=== PATIENT | male | born 1990 | race Caucasian/White ===

== ENCOUNTER 2020-01-12 16:10 | Emergency (ER) | payer BC, OTHER ==
[~2020-01-12] VITALS: Ht 182.9 cm; Wt 76.7 kg
[~2020-01-12 16:10] MED LIST: AMPH30TA2 PO
[2020-01-12] MEDS ORDERED: ONDANSETRON 2MG/ML, 2ML ONE (17:09)
[2020-01-12] MEDS ORDERED: KETOROLAC 30 MG/1 ML ONE (17:11)
[2020-01-12 17:18] VITALS: BP 156/102
--- NOTE | 2020-01-12 17:21 | NUR ---
Pt arrives to ed with new onset of emesis and is unable to control. Pt reports he also has lower right flank pain. Pt reports he has had some etoh before but drinks a beer a day. Pt also reports that he has used cannibis but normally smokes before bed everyday. Pt had one large episode of emesis in front of RN about 600cc of green biley like fluid. Pt connected to monitors. PIV placed and pt medicated per emar. Call light in reach.
[2020-01-12 17:23] LABS: BASOPHILS # (AUTO) 0.02 x10^3/uL (0-0.1); BASOPHILS % (AUTO) 0 % (0-1); EOSINOPHILS % (AUTO) 0 % (1-7); LYMPHOCYTES # (AUTO) 0.96 x10^3/uL (1-3.4); LYMPHOCYTES % (AUTO) 9 % (22-44); MD NO; MEAN CORPUSCULAR HEMOGLOBIN 32.3 pg (27.5-34.5); MEAN CORPUSCULAR HGB CONC 33.5 g/dL (33.2-36.2); MEAN CORPUSCULAR VOLUME 96.4 fL (81-97); MEAN PLATELET VOLUME 7.5 fL (7.4-10.4); MONOCYTES # (AUTO) 0.54 x10^3/uL (0.2-0.8); MONOCYTES % (AUTO) 5 % (2-9); NEUTROPHILS # (AUTO) 9.38 x10^3/uL (1.8-6.8); NEUTROPHILS % (AUTO) 86 % (42-75); PLATELET COUNT 247 x10^3/uL (130-400); RED CELL DISTRIBUTION WIDTH 13.5 % (9.4-14.8)
[2020-01-12] MEDS ORDERED: KETOROLAC 30 MG/1 ML IVPush ONE (17:30)
[2020-01-12] MEDS ORDERED: ONDANSETRON 2MG/ML, 2ML IVPush ONE (17:30)
[2020-01-12] MEDS ORDERED: SODIUM CHLORIDE 0.9% 1,000ML IVBOLUS ONE (17:30)
[2020-01-12] MEDS ORDERED: SODIUM CHLORIDE FLUSH 10ML SYR IVF ONE (17:30)
[2020-01-12 17:31] LABS: ALANINE AMINOTRANSFERASE 43 U/L (12-78); ALBUMIN 5.1 g/dL (3.4-5.0); ANION GAP 11 mmol/L (5-15); CALCIUM 9.1 mg/dL (8.5-10.1); CHLORIDE 102 mmol/L (98-107); CREATININE 1.55 mg/dL (0.7-1.3)
[2020-01-12 17:33] LABS: ALKALINE PHOSPHATASE 115 U/L (45-117); BILIRUBIN,TOTAL 1.1 mg/dL (0.2-1.0); TOTAL PROTEIN 9.6 g/dL (6.4-8.2)
--- NOTE | 2020-01-12 17:39 | NUR ---
BREAK RN: PT TO CT AT THIS TIME
[2020-01-12] MEDS ORDERED: KETOROLAC 60 MG/2 ML ONE (18:53)
[2020-01-12 18:59] LABS: MICROSCOPIC INDICATED
--- NOTE | 2020-01-12 19:19 | NUR ---
Recheck at this time.
--- NOTE | 2020-01-12 19:51 | NUR ---
Patient/Caregiver given discharge instructions and they have confirmed that they understand the instructions. Patient ambulatory with steady gait.
== END 2020-01-12 19:54 | disposition home or self-care (01) ==
LOC: ED 19:26
DX: N13.2 Hydronephrosis with renal and ureteral calculous obstruction (principal); R10.31 Right lower quadrant pain; R11.2 Nausea with vomiting, unspecified
CPT/HCPCS: 36415; 74176; 80053; 81001; 85025; 87086; 96361; 96374; 96375; 99284; J1885; J2405; J7030

== ENCOUNTER 2020-04-05 11:35 | Emergency (ER) | payer BC, OTHER ==
[~2020-04-05] VITALS: Ht 182.9 cm; Wt 75.5 kg
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
[2020-04-05] MEDS ORDERED: PROMETHAZINE 25 MG/ML, 1ML ONE (12:26)
[2020-04-05] MEDS ORDERED: KETOROLAC 30 MG/1 ML ONE (12:26)
--- NOTE | 2020-04-05 12:35 | NUR ---
PT TRANSPORTED TO IMAGING.
[2020-04-05 12:41] LABS: BASOPHILS % (AUTO) 0 % (0-1); EOSINOPHILS % (AUTO) 0 % (1-7); LYMPHOCYTES % (AUTO) 8 % (22-44); MEAN CORPUSCULAR HEMOGLOBIN 32.5 pg (27.5-34.5); MEAN CORPUSCULAR HGB CONC 34.4 g/dL (33.2-36.2); MEAN PLATELET VOLUME 7.6 fL (7.4-10.4); MONOCYTES % (AUTO) 6 % (2-9); NEUTROPHILS % (AUTO) 87 % (42-75); PLATELET COUNT 252 x10^3/uL (130-400); RED BLOOD COUNT 5.25 x10^6/uL (4.38-5.82); RED CELL DISTRIBUTION WIDTH 13.2 % (9.4-14.8)
[2020-04-05 12:51] LABS: ALANINE AMINOTRANSFERASE 38 U/L (12-78); ANION GAP 13 mmol/L (5-15); CALCIUM 9.1 mg/dL (8.5-10.1); CHLORIDE 102 mmol/L (98-107); CREATININE 1.48 mg/dL (0.7-1.3)
[2020-04-05 12:53] LABS: ALKALINE PHOSPHATASE 125 U/L (45-117); BILIRUBIN,TOTAL 0.9 mg/dL (0.2-1.0); TOTAL PROTEIN 8.8 g/dL (6.4-8.2)
[2020-04-05] MEDS ORDERED: KETOROLAC 30 MG/1 ML IVPush ONE (13:00)
[2020-04-05] MEDS ORDERED: PROMETHAZINE 25 MG/ML, 1ML IM ONE (13:00)
--- NOTE | 2020-04-05 13:09 | NUR ---
REPORT GIVEN TO DULCE SALOMON.
[2020-04-05] MEDS ORDERED: SODIUM CHLORIDE FLUSH 10ML SYR IVF ONE (13:30)
[2020-04-05 13:45] LABS: MD SCAN
--- NOTE | 2020-04-05 14:16 | NUR ---
PT AMBULATED TO BATHROOM. INSTRUCTED ON COLLECTION OF CC URINE SAMPLE
--- NOTE | 2020-04-05 14:39 | NUR ---
URINE SQAMPLE COLLECTED AND SENT TO LAB
[2020-04-05 14:56] LABS: MICROSCOPIC AUTO
[2020-04-05] MEDS ORDERED: LISINOPRIL 10 MG TABLET PO ONE (16:30)
[2020-04-05] MEDS ORDERED: LISINOPRIL 10 MG TABLET ONE (16:49)
--- NOTE | 2020-04-05 17:00 | NUR ---
PT CONTINUED ELEVATED DIASTOLIC BP DISCUSSED WITH PROVIDER. ORDER FOR LISINOPRIL REC'D. PT MED NOTED. DISCUSSED WITH PT REASON FOR MEDICATION, SIDE EFFECTS AND PRECAUTIONS. D/C INST REVIEWED AND IMPORTANCE OF F/U WITH UROLOGY. PT VERBALIZES UNDERSTANDING. PT TO REMAIN IN ED UNTIL RN RTNS AT 1730 TO RECHECK HIS BP.
[2020-04-05 17:34] VITALS: BP 153/109
--- NOTE | 2020-04-05 17:42 | NUR ---
Patient/Caregiver given discharge instructions and they have confirmed that they understand the instructions. Patient ambulatory with steady gait.
== END 2020-04-05 17:43 | disposition home or self-care (01) ==
LOC: ED 13:29
DX: N20.0 Calculus of kidney (principal); R10.9 Unspecified abdominal pain; R11.10 Vomiting, unspecified; I10 Essential (primary) hypertension
CPT/HCPCS: 36415; 74018; 76770; 80053; 81001; 85025; 96372; 96374; 99285; J1885; J2550

== ENCOUNTER 2020-07-18 17:09 | Emergency (ER) | payer OTHER ==
[~2020-07-18] VITALS: Ht 182.9 cm; Wt 77.3 kg
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
[2020-07-18] MEDS ORDERED: MECLIZINE CHEWABLE 25 MG TAB ONE (17:48)
[2020-07-18] MEDS ORDERED: ONDANSETRON ODT 4 MG ONE (17:48)
[2020-07-18 17:52] LABS: ANION GAP 13 mmol/L (5-15); CALCIUM 9.1 mg/dL (8.5-10.1); CHLORIDE 109 mmol/L (98-107); CREATININE 1.03 mg/dL (0.7-1.3)
[2020-07-18] MEDS ORDERED: MECLIZINE CHEWABLE 25 MG TAB PO ONE (18:00)
[2020-07-18] MEDS ORDERED: ONDANSETRON ODT 4 MG PO ONE (18:00)
[2020-07-18 18:08] LABS: BASOPHILS % (AUTO) 0 % (0-1); EOSINOPHILS % (AUTO) 0 % (1-7); LYMPHOCYTES % (AUTO) 10 % (22-44); MEAN CORPUSCULAR HEMOGLOBIN 33.4 pg (27.5-34.5); MEAN CORPUSCULAR HGB CONC 35.3 g/dL (33.2-36.2); MEAN PLATELET VOLUME 7.2 fL (7.4-10.4); MONOCYTES % (AUTO) 5 % (2-9); NEUTROPHILS % (AUTO) 85 % (42-75); PLATELET COUNT 252 x10^3/uL (130-400); RED BLOOD COUNT 4.78 x10^6/uL (4.38-5.82); RED CELL DISTRIBUTION WIDTH 13.4 % (9.4-14.8)
[2020-07-18 18:12] LABS: MD NO
--- NOTE | 2020-07-18 18:32 | NUR ---
PT SITTING UP IN BED, RESPIRATIONS EVEN AND UNLABORED, NAD NOTED AT THIS TIME. FRIEND REMAINS AT BEDSIDE. SIDE RAILS UP, CALL LIGHT IN REACH.
--- NOTE | 2020-07-18 19:03 | NUR ---
REPORT TO [facility].
[2020-07-18 19:10] VITALS: BP 140/95
--- NOTE | 2020-07-18 19:10 | NUR ---
RECEIVED REPORT FROM [facility]. PT RESTING ON CADEN LY. VSS.
== END 2020-07-18 19:44 | disposition home or self-care (01) ==
LOC: ED 18:51
DX: S09.90XA Unspecified injury of head, initial encounter (principal); F07.81 Postconcussional syndrome; M54.2 Cervicalgia; R11.2 Nausea with vomiting, unspecified; R42 Dizziness and giddiness; V47.5XXA Car driver injured in collision with fixed or stationary object in traffic accident, initial encounter; Y93.89 Activity, other specified; Y92.410 Unspecified street and highway as the place of occurrence of the external cause; Y99.8 Other external cause status
CPT/HCPCS: 36415; 70450; 72125; 80048; 82040; 85025; 93005; 99285; Q0162